=== PATIENT | female | born 1940 | race Caucasian/White ===

== ENCOUNTER 2017-02-16 21:24 | Emergency (ER) | payer MEDICARE, OTHER ==
--- NOTE | 2017-02-16 22:05 | ED Physician Documentation ---
PD HPI ABD PAIN - Stated complaint Stated Complaint: FEMALE - Chief complaint Chief Complaint: Abd Pain - History obtained from History obtained from: Patient - History of Present Illness Timing - onset: How many weeks ago (1-2 weeks of left low back pain radiating to both thighs anteriorly and toward medial knees. No feeling of weakness nor tingling of legs. No edema.) Timing - duration: Weeks (2) Timing - details: Gradual onset, Still present, Waxing and waning Quality: Cramping, Aching, Pain Location: LLQ, Other (left low back in SI area) Radiation: Lower back, Left flank. No: Chest Improved by: Laying still. No: Eating, BM, Position Worsened by: Moving, Palpation. No: Eating, Breathing, Position Associated symptoms: Nausea. No: Fever, Vomiting, Diarrhea, Dysuria, Hematuria , Near syncope / syncope Similar symptoms before: Has not had sx before Recently seen: Not recently seen Review of Systems Constitutional: denies: Fever, Chills Nose: denies: Rhinorrhea / runny nose, Congestion Throat: denies: Sore throat Cardiac: denies: Chest pain / pressure, Palpitations Respiratory: denies: Dyspnea, Cough GI: reports: Nausea. 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, Other HEENT: Tonsil/Adenoidectomy - Present Medications Home Medications: Ambulatory Orders Medication Instructions Recorded Confirmed Citalopram [CeleXA] 40 mg PO DAILY 11/30/13 02/16/17 HYDROcod/ACETAM 5/325 [Vicodin 1 - 2 ea PO Q6H PRN #15 tablet 11/30/13 02/16/17 5/325] Ondansetron Odt [Zofran] 4 mg TL Q6H PRN #10 tablet 11/30/13 02/16/17 Zolpidem [Ambien] 2.5 mg PO HS 11/30/13 02/16/17 Naproxen 375 mg PO BID #20 tablet 02/17/17 Tramadol HCl 50 mg PO Q6H PRN #20 tablet 02/17/17 - Allergies Allergies/Adverse Reactions: Allergies Allergy/AdvReac Type Severity Reaction Status Date / Time Sulfa (Sulfonamide Allergy blisters Verified 11/30/13 09:11 Antibiotics) morphine AdvReac Hallucinati Verified 06/23/14 07:01 ons - Social History Does the pt smoke?: No Smoking Status: Never smoker Does the pt drink ETOH?: No Does the pt have substance abuse?: No - Family History Family history: reports: Non contributory. denies: Aortic aneursym, Aortic dissection - Immunizations Immunizations are current?: Yes - POLST Patient has POLST: No POLST Status: Full Code PD ED PE NORMAL - Vitals Vital signs reviewed: Yes - General General: Alert and oriented X 3, No acute distress, Well developed/nourished - HEENT HEENT: Moist mucous membranes, Pharynx benign - Neck Neck: Supple, no meningeal sign, No adenopathy - Cardiac Cardiac: RRR, No murmur - Respiratory Respiratory: Clear bilaterally - Abdomen Abdomen: Normal bowel sounds, Soft, Non tender, Non distended, No organomegaly - Female Female : Deferred - Rectal Rectal: Deferred - Back Back: No CVA TTP, No spinal TTP (there is tenderness at right SI joint area. No redness, rash, sores. Legs without edema nor calf tenderness. Normal sensation in legs and 2+ DTRs at knees. There is some mild muscle stiffness of thighs. No redness nor tenderness. ) - Derm Derm: Normal color, Warm and dry, No rash - Extremities Extremities: Normal ROM s pain, No edema, No calf tenderness / cord, Other ( anterior thighs with some muscle tenderness bilaterally. ) - Neuro Neuro: Alert and oriented X 3, No motor deficit, No sensory deficit, Other ( normal knee reflexes. ) Results - Vitals Vitals: Vital Signs - 24 hr 02/16/17 02/17/17 21:31 01:27 Temperature 36.3 C L Heart Rate 67 77 Respiratory 16 16 Rate Blood Pressure 170/78 H 155/67 H O2 Saturation 98 97 Oxygen O2 Source Room air - Labs Labs: Laboratory Tests 02/16/17 02/16/17 02/16/17 22:14 22:41 22:41 WBC 6.6 RBC 4.62 Hgb 13.9 Hct 40.7 MCV 88.2 MCH 30.2 MCHC 34.2 RDW 13.3 Plt Count 193 MPV 9.0 Neut # 3.6 Lymph # 2.0 [place] # 0.5 Eos # 0.5 Baso # 0.1 Absolute Nucleated RBC 0.00 Nucleated RBCs 0.0 Sodium 138 Potassium 4.0 Chloride 106 Carbon Dioxide 25 Anion Gap 7.0 BUN 18 Creatinine 0.7 Estimated GFR (MDRD) 81 L Glucose 105 H Calcium 9.4 Total Bilirubin 0.7 AST 21 ALT 17 Alkaline Phosphatase 44 Total Protein 6.4 L Albumin 3.8 Globulin 2.6 Albumin/Globulin Ratio 1.5 Lipase 24 Urine Color YELLOW Urine Clarity CLEAR Urine pH 6.0 Ur Specific [place] 1.015 Urine Protein NEGATIVE Urine Glucose (UA) NEGATIVE Urine Ketones NEGATIVE Urine Occult Blood NEGATIVE Urine Nitrite NEGATIVE Urine Bilirubin NEGATIVE Urine Urobilinogen 0.2 (NORMAL) Ur Leukocyte Esterase NEGATIVE Ur Microscopic Review NOT INDICATED Urine Culture Comments NOT INDICATED - Rads (name of study) abd CT Radiology: Prelim report reviewed, EMP read contemporaneously (no stones, diverticula without obvious diverticulitis, no free fluid, vascular appears okay. Interesting small bubble of air in bladder. She did not have catheterization but says she did have to push hard to urinate, so perhaps some refluxing?).) PD MEDICAL DECISION MAKING - ED course Complexity details: reviewed results (CT showing no stones, no diverticulitis, vascular appears okay. Presumed msuculoskeletal with sdciatic radiation. She is not on statins regarding thigh muscle tenderness. ), re-evaluated patient, considered differential, d/w patient Departure - Departure Disposition: 01 Home, Self Care Clinical Impression: Abdominal pain Qualifiers: Abdominal location: left lower quadrant Qualified Code(s): R10.32 - Left lower quadrant pain Low back pain Qualifiers: Chronicity: acute Back pain laterality: left Sciatica presence: with sciatica Sciatica laterality: bilateral sciatica Qualified Code(s): M54.42 - Lumbago with sciatica, left side Condition: Stable Record reviewed to determine appropriate education?: Yes Instructions: ED Low Back Pain Injury, ED Sciatica Follow-Up: Elba Hawthorne DO [Primary Care Provider] - Prescriptions: Naproxen 375 mg PO BID #20 tablet Tramadol HCl 50 mg PO Q6H PRN #20 tablet PRN Reason: Pain Comments: The test do not show any bladder/kidney infection, kidney stones, diverticulitis , or other obvious infectious cause of the pain. Presume then, it is musculoskeletal pain with nerve irritation to the legs (sciatica). Use anti- inflammatory Naproxen twice daily for 7-10 days. Add Tylenol 500 mg 4 times daily and then Tramadol as well for pain as needed. Follow up with PMD in 2-3 days, call for appt. Return if worsening pain or other symptoms. Discharge Date/Time: 02/17/17 01:28
[2017-02-16 22:19] LABS: BILIRUBIN,URINE NEGATIVE (NEGATIVE)
[2017-02-16 22:23] LABS: UA CHARGE (STRIP ONLY) YES; UR CULTURE IF IND NOT INDICATED
[2017-02-16] MEDS ORDERED: KETOROLAC 60 MG/2 ML VIAL IVP STA (22:25)
[2017-02-16] MEDS ORDERED: fentaNYL 100 MCG/2 ML VIAL IVP STA (22:25)
[2017-02-16] MEDS ORDERED: ONDANSETRON 4 MG/2 ML VIAL IVP STA (22:26)
[2017-02-16 22:48] LABS: BASOPHILS # (AUTO) 0.1 10^3/uL (0.0-0.1); BASOPHILS % (AUTO) 0.8 %; EOSINOPHILS # (AUTO) 0.5 10^3/uL (0.0-0.7); EOSINOPHILS % (AUTO) 6.9 %; HCT - HEMATOCRIT 40.7 % (37.0-47.0); HGB - HEMOGLOBIN 13.9 g/dL (12.0-16.0); MEAN CORPUSCULAR HEMOGLOBIN 30.2 pg (27.0-31.0); MEAN CORPUSCULAR HGB CONC 34.2 g/dL (32.0-36.0); MEAN CORPUSCULAR VOLUME 88.2 fL (81.0-99.0); MONOCYTES # (AUTO) 0.5 10^3/uL (0.0-1.0); MONOCYTES % (AUTO) 7.1 %; NEUTROPHILS # (AUTO) 3.6 10^3/uL (1.5-6.6); NEUTROPHILS % (AUTO) 55.2 %; RED BLOOD COUNT 4.62 10^6/uL (4.20-5.40); RED CELL DISTRIBUTION WIDTH 13.3 % (12.0-15.0); UNCORRECTED WHITE BLOOD COUNT 6.6 x10^3/uL; WHITE BLOOD COUNT 6.6 x10^3/uL (4.8-10.8)
[2017-02-16 22:59] LABS: ALBUMIN/GLOBULIN RATIO 1.5 (1.0-2.2); BILIRUBIN,TOTAL 0.7 mg/dL (0.2-1.0); CALCIUM 9.4 mg/dL (8.5-10.3); CREATININE 0.7 mg/dL (0.4-1.0); TOTAL PROTEIN 6.4 g/dL (6.7-8.2)
[2017-02-17] MEDS ORDERED: IOPAMIDOL-300 100 ML VIAL IVP ONE (00:14)
--- NOTE | 2017-02-17 00:46 | CT Preliminary Report ---
Exam: CT Abdomen/Pelvis W/ IMPRESSION: 1. Diverticulosis without inflammation. Normal appendix. No obstruction. 2. No renal mass, stones or hydronephrosis. 3. Status post hysterectomy and cholecystectomy. 4. Tiny amounts of air within the bladder. Correlate with history of recent catheterization. [facility] SITE ID: [id number]
--- NOTE | 2017-02-17 00:49 | CT Report ---
EXAM: CT ABDOMEN AND PELVIS EXAM DATE: 02/17/2017 12:14 AM. CLINICAL HISTORY: Left lower abd pain/ pelvic pain. COMPARISONS: 03/06/2016. TECHNIQUE: Routine helical CT imaging was performed through the abdomen and pelvis. IV contrast: 100 cc Isovue-300. Enteric contrast: No. Reconstructions: Coronal and sagittal. In accordance with CT protocol optimization, one or more of the following dose reduction techniques w ere utilized for this exam: automated exposure control, adjustment of mA and/or KV based on patient s ize, or use of iterative reconstructive technique. FINDINGS: Lung Bases: Incidental small hiatal hernia noted. Lung bases are clear. No effusions. Liver: Normal. No masses. Gallbladder/Bile Ducts: Gallbladder is absent. No common bile duct dilation noted. Spleen: Normal. Pancreas: Normal. Adrenal Glands: Normal. Kidneys: Normal. No masses or hydronephrosis. Peritoneal Cavity/Bowel: Normal. No free fluid, free air or adenopathy. No masses or acute inflammato ry process. There are multiple diverticula seen which most severely affect the sigmoid colon. No wal l thickening or adjacent inflammation seen. No obstruction noted. Normal appendix. No focal right l ower quadrant inflammation. Pelvic Organs: Tiny amount of air is present in the nondependent portions of the bladder. Uterus is a bsent. No mass or adenopathy. Vasculature: Diffuse atheromatous plaques are present in the abdominal aorta and branch vessels. No a neurysm. Normal IVC. Bones: No significant abnormality. Other: None. IMPRESSION: 1. Diverticulosis without inflammation. Normal appendix. No obstruction. 2. No renal mass, stones or hydronephrosis. 3. Status post hysterectomy and cholecystectomy. 4. Tiny amounts of air within the bladder. Correlate with history of recent catheterization. [facility] Referring Provider Line: [phone] SITE ID: [id number]
[2017-02-17] MEDS ORDERED: DEXAMETHASONE 10 MG/ML VIAL IVP STA (01:14)
[2017-02-17] MEDS ORDERED: ACETAMINOPHEN 325 MG TABLET PO STA (01:14)
[2017-02-17] MEDS ORDERED: traMADol 50 MG TABLET PO STA (01:14)
[2017-02-17] MEDS ORDERED: traMADol 50 MG TABLET PO ONE (01:20)
[2017-02-17] MEDS ORDERED: CHERRY SYRUP 10 ML UDC PO ONE (01:20)
[2017-02-17] MEDS ORDERED: ACETAMINOPHEN 325 MG TABLET PO ONE (01:20)
[2017-02-17] MEDS ORDERED: DEXAMETHASONE 10 MG/ML VIAL ONE (01:20)
[2017-02-17 01:28] VITALS: BP 155/67
== END 2017-02-17 01:28 | disposition home or self-care (01) ==
LOC: ED 21:24
DX: R10.32 Left lower quadrant pain (principal); I25.10 Atherosclerotic heart disease of native coronary artery without angina pectoris
CPT/HCPCS: 36415; 74177; 80053; 81003; 83690; 85025; 96374; 99283; 99284; A9270; Q9967; 81001; 87086

== ENCOUNTER 2017-02-18 08:00 | Outpatient (CLI) | payer MEDICARE, OTHER ==
[2017-02-18 14:56] LABS: BASOPHILS % (AUTO) 0.5 %; EOSINOPHILS # (AUTO) 0.1 10^3/uL (0.0-0.7); EOSINOPHILS % (AUTO) 0.7 %; HCT - HEMATOCRIT 40.1 % (37.0-47.0); HGB - HEMOGLOBIN 13.6 g/dL (12.0-16.0); LYMPHOCYTES # (AUTO) 1.7 10^3/uL (1.5-3.5); LYMPHOCYTES % (AUTO) 17.6 %; MEAN CORPUSCULAR HEMOGLOBIN 30.1 pg (27.0-31.0); MEAN CORPUSCULAR VOLUME 88.6 fL (81.0-99.0); MEAN PLATELET VOLUME 9.5 fL (7.9-10.8); MONOCYTES # (AUTO) 0.5 10^3/uL (0.0-1.0); MONOCYTES % (AUTO) 4.7 %; NEUTROPHILS # (AUTO) 7.5 10^3/uL (1.5-6.6); NEUTROPHILS % (AUTO) 76.5 %; RED BLOOD COUNT 4.52 10^6/uL (4.20-5.40); RED CELL DISTRIBUTION WIDTH 13.7 % (12.0-15.0); UNCORRECTED WHITE BLOOD COUNT 9.8 x10^3/uL; WHITE BLOOD COUNT 9.8 x10^3/uL (4.8-10.8)
[2017-02-18 16:10] LABS: ALBUMIN/GLOBULIN RATIO 1.9 (1.0-2.2); BUN - BLOOD UREA NITROGEN 18 mg/dL (6-20); CALCIUM 9.5 mg/dL (8.5-10.3); CARBON DIOXIDE - CO2 27 mmol/L (21-32); CHLORIDE 105 mmol/L (101-111); CHOL/HDL RATIO 3.7 (<4.4); CHOLESTEROL 230 mg/dL; CREATININE 0.7 mg/dL (0.4-1.0); GFR - MDRD 81 (>89); GLUCOSE 91 mg/dL (70-100); HDL CHOLESTEROL 62 mg/dL; LDL/HDL RATIO 2.4 (<4.4); POTASSIUM 3.9 mmol/L (3.5-5.0); SODIUM 139 mmol/L (135-145); TOTAL PROTEIN 6.6 g/dL (6.7-8.2); TRIGLYCERIDES 102 mg/dL; VLDL CHOLESTEROL 20 mg/dL
== END 2017-02-18 08:01 | disposition home or self-care (01) ==
LOC: LAB.WCP 08:00
PROVIDERS: ATTEND Family Medicine
DX: R10.32 Left lower quadrant pain (principal)
CPT/HCPCS: 36415; 80053; 80061; 84443; 85025

== ENCOUNTER 2017-04-26 08:00 | Outpatient (CLI) | payer MEDICARE, OTHER | END 2017-04-26 08:01 | disposition home or self-care (01) | LOC: LAB.R 08:00 | PROVIDERS: ATTEND Family Medicine | DX: R39.89 Other symptoms and signs involving the genitourinary system (principal) | CPT/HCPCS: 87086 ==

== ENCOUNTER 2017-09-10 11:11 | Emergency (ER) | payer MEDICARE, OTHER ==
--- NOTE | 2017-09-10 12:07 | ED Physician Documentation ---
PD HPI FOCAL NEURO - Stated complaint Stated Complaint: STROKE LIKE SYMPTOMS - Chief complaint Chief Complaint: Neuro - History obtained from History obtained from: Patient - History of Present Illness Timing - onset: How many days ago (3) Timing - duration: Days (3) Timing - details: Intermittant (has had symptoms for few minutes at a time, initially 3 days ago, again yesterday and last night, with fixed bright spot right eye vision (not flashing) and right corner of mouth and side of tongue numbness. No symptoms currently. No facial droop/weakness. Noted some numbness right middle fingers at a different time just briefly.) Weakness: No: Face, Arm, Hand, Leg Numbness: Face, Hand Associated symptoms: No: Headache, Nausea / vomiting, Chest pain, Neck pain, Back pain Contributing factors: negative: Anticoagulated, Vascular dz, Atrial fibrillation Baseline status: positive: A&OX3, ambulatory, indep Similar symptoms before: Has not had sx before Recently seen: Not recently seen Review of Systems Constitutional: denies: Fever, Chills, Myalgias Eyes: reports: Decreased vision (white spots in vision, not flashing, lasting several minutes at a time then gone. Right eye.). denies: Loss of vision Ears: denies: Loss of hearing, Ear pain Nose: denies: Rhinorrhea / runny nose, Congestion Throat: denies: Dental pain / toothache, Oral lesions / sores, Sore throat Cardiac: denies: Chest pain / pressure, Palpitations Respiratory: denies: Dyspnea GI: denies: Nausea, Vomiting, Diarrhea : denies: Dysuria, Frequency Skin: denies: Rash, Lesions Musculoskeletal: denies: Neck pain, Back pain Neurologic: reports: Numbness (right side of tongue and around corner of mouth. Not whole face. At times some to right middle fingers.). 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, Other HEENT: Tonsil/Adenoidectomy - Present Medications Home Medications: Ambulatory Orders Medication Instructions Recorded Confirmed Citalopram [CeleXA] 40 mg PO DAILY 11/30/13 02/16/17 Zolpidem [Ambien] 2.5 mg PO HS 11/30/13 02/16/17 - Allergies Allergies/Adverse Reactions: Allergies Allergy/AdvReac Type Severity Reaction Status Date / Time Sulfa (Sulfonamide Allergy blisters Verified 09/10/17 11:18 Antibiotics) morphine AdvReac Hallucinati Verified 09/10/17 11:18 ons - Living Situation Living Situation: reports: Alone Living Arrangement: reports: At home - Social History Does the pt smoke?: No Smoking Status: Never smoker Does the pt drink ETOH?: Yes Does the pt have substance abuse?: No - Family History Family history: reports: Non contributory. denies: Venous thromboembolism - Immunizations Immunizations are current?: Yes - POLST Patient has POLST: No POLST Status: Full Code PD ED PE NORMAL - Vitals Vital signs reviewed: Yes - General General: No acute distress, Well developed/nourished - HEENT HEENT: Atraumatic, Pharynx benign - Neck Neck: Supple, no meningeal sign, No adenopathy - Cardiac Cardiac: RRR, No murmur - Respiratory Respiratory: Clear bilaterally - Abdomen Abdomen: Soft, Non tender - Derm Derm: Normal color, Warm and dry, No rash - Extremities Extremities: No deformity, No tenderness to palpate, Normal ROM s pain, No edema , No calf tenderness / cord - Neuro Neuro: Alert and oriented X 3, car manager 2-12 intact, No motor deficit, No sensory deficit, Normal speech, Other Eye Opening: Spontaneous Motor: Obeys Commands Verbal: Oriented GCS Score: 15 - Psych Psych: Normal mood NIHSS - Level of Consciousness Level of consciousness: (0) Alert, Keenly responsive LOC Questions: (0) Answers both Q's correct LOC Commands: (0) Performs both correctly - Gaze Best Gaze: (0) Normal - Visual Visual: (0) No loss - Facial Palsy Facial Palsy: (0) Normal, symmetrical movement - Motor Arms (both separate) Motor Arm (right): (0) No drift Motor Arm (left): (0) No drift - Motor Legs (both separate) Motor Leg (right): (0) No drift Motor Leg (left): (0) No drift - Limb Ataxia Limb Ataxia: (0) Absent - Sensory Sensory: (0) Normal - Best Language Best Language: (0) No aphasia - Dysarthria Dysarthria: (0) Normal - Extinction and Inattention (formally neg Extinction and inattention: (0) No abnormality - Total Score/Results Total Score/Result: 0 Results - Vitals Vitals: Oxygen O2 Source Room air - Labs Labs: Laboratory Tests 09/10/17 09/10/17 09/10/17 11:50 11:50 11:50 WBC 5.3 RBC 4.61 Hgb 13.8 Hct 40.6 MCV 88.0 MCH 29.8 MCHC 33.9 RDW 13.5 Plt Count 176 MPV 9.0 Neut # 3.7 Lymph # 1.0 L [place] # 0.4 Eos # 0.1 Baso # 0.0 Absolute Nucleated RBC 0.00 Nucleated RBC % 0.1 ESR 4 Sodium 137 Potassium 4.1 Chloride 104 Carbon Dioxide 25 Anion Gap 8.0 BUN 14 Creatinine 0.7 Estimated GFR (MDRD) 81 L Glucose 82 Calcium 9.2 Magnesium 2.1 Total Bilirubin 0.7 AST 23 ALT 16 Alkaline Phosphatase 39 L Total Protein 6.4 L Albumin 4.0 Globulin 2.4 Albumin/Globulin Ratio 1.7 Lipase 17 L - Rads (name of study) brain MRI/MRA Radiology: Prelim report reviewed (no focal lesions nor infarcts.) PD MEDICAL DECISION MAKING - ED course Complexity details: reviewed results, considered differential (her symptoms would be worrisome for posterior circulation with facial nerve root and visual symptoms. Need MRI. 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 Drink lots of fluids. Take a 81 mg aspirin daily. Follow-up with your primary care in the next few days, call for an appointment. At this point would presume the symptoms are related to intermittent flow problems (TIA). No other obvious cause on your current testing. The meningioma you had is the same size and so I do not think that is causing it. Discharge Date/Time: 09/10/17 15:03
[2017-09-10 12:30] LABS: BASOPHILS % (AUTO) 0.8 %; EOSINOPHILS # (AUTO) 0.1 10^3/uL (0.0-0.7); EOSINOPHILS % (AUTO) 2.8 %; HGB - HEMOGLOBIN 13.8 g/dL (12.0-16.0); LYMPHOCYTES % (AUTO) 19.7 %; MEAN CORPUSCULAR HEMOGLOBIN 29.8 pg (27.0-31.0); MEAN CORPUSCULAR HGB CONC 33.9 g/dL (32.0-36.0); MONOCYTES # (AUTO) 0.4 10^3/uL (0.0-1.0); MONOCYTES % (AUTO) 6.8 %; NEUTROPHILS # (AUTO) 3.7 10^3/uL (1.5-6.6); NEUTROPHILS % (AUTO) 69.9 %; PLT - PLATELET COUNT 176 10^3/uL (130-450); RED BLOOD COUNT 4.61 10^6/uL (4.20-5.40); RED CELL DISTRIBUTION WIDTH 13.5 % (12.0-15.0); WHITE BLOOD COUNT 5.3 x10^3/uL (4.8-10.8)
[2017-09-10 12:38] LABS: ALBUMIN/GLOBULIN RATIO 1.7 (1.0-2.2); BILIRUBIN,TOTAL 0.7 mg/dL (0.2-1.0); CALCIUM 9.2 mg/dL (8.5-10.3); CREATININE 0.7 mg/dL (0.4-1.0); MAGNESIUM 2.1 mg/dL (1.7-2.8); TOTAL PROTEIN 6.4 g/dL (6.7-8.2)
[2017-09-10] MEDS ORDERED: GADOBUTROL 7.5 MMOL/7.5 ML VIAL ONE (13:34)
[2017-09-10] MEDS ORDERED: GADOBUTROL 7.5 MMOL/7.5 ML VIAL IVP ONE (13:50)
[2017-09-10 14:10] VITALS: BP 178/69
--- NOTE | 2017-09-10 14:32 | MRI Report ---
EXAM: MRI BRAIN WITHOUT AND WITH CONTRAST MR ANGIOGRAM BRAIN EXAM DATE: 09/10/2017 01:53 PM. CLINICAL HISTORY: Intermittent right tongue and face numbness. Visual change. History of known right- sided meningioma. COMPARISON: Prior MRI brain 01/14/2015. TECHNIQUE: MRI brain: Multiplanar, multisequence T1-weighted and fluid-sensitive MR sequences of the brain were performed. Sequences optimized for routine evaluation. Other: None. IV Contrast: 7 cc Gadavist. MR angiogram brain: MRA brain performed, multiple maximum intensity projection images are generated. Findings: Relevant images are indicated (image number, series number). MRI brain: Compared with MRI brain 01/14/2015: No interval acute or subacute ischemic change of the brain. Small stable right basal ganglia, right p utamen cavernoma, unchanged with small ring hemosiderin, maximum dimension 0.7 cm. Gradient echo imag ing negative. No interval development of hemorrhage, mass or midline shift. Ventricles are not dilated. Minimal gen eralized cortical atrophy of the brain. Postcontrast imaging again demonstrates 1 cm right convexity extra-axial enhancing mass consistent with meningioma, no mass effect (59, 1003). Basal cisterns, bilateral IACs, bilateral Meckel's caves are clear. Orbital contents negative. Mild-t o-moderate left frontal, anterior left ethmoidal sinus mucosal thickening. Normal expected vascular flow voids of the major arteries and veins. Limited evaluation suprahyoid neck unremarkable. Unchanged minimal scattered subcortical white matter disease. Pituitary, mid brain, craniocervical junction, limited evaluation upper cervical cord negative. Chron ic degenerative change C1-C2 articulation without canal stenosis. Extraocular muscles, optic nerves, orbital apex, optic chiasm appears negative. MRA brain: Left ICA: Patent. Patent MCA with at least 20-30% short segment narrowing mid left M1 segment (121, 4 01), otherwise patent MCA distribution, SILVER distribution. Right ICA: Patent including MCA, SILVER distribution. Posterior circulation: Patent distal bilateral vertebral arteries, basilar artery, patent bilateral P CA distribution. Impressions: Compared with MRI brain 01/14/2015: MRI brain: 1. No acute or subacute ischemic change. 2. Stable small right basal ganglia 0.7 cm cavernoma. 3. Stable 1 cm right convexity meningioma, no mass effect. 4. Stable minimal scattered subcortical white matter disease of indeterminate significance. Could be related to any history of headaches. 5. Remaining brain, orbits are unremarkable. 6. Mild to moderate paranasal sinus disease as described. MR angiogram brain: 1. Patent major arteries of the brain, with normal anatomical variability as described. No aneurysm, dissection, stenosis, AVM. [facility] Referring Provider Line: [phone] SITE ID: [id number]
[2017-09-10] MEDS ORDERED: ASPIRIN CHEW 81 MG TABLET PO STA (14:58)
== END 2017-09-10 15:03 | disposition home or self-care (01) ==
LOC: ED 11:11
DX: G45.0 Vertebro-basilar artery syndrome (principal); I25.10 Atherosclerotic heart disease of native coronary artery without angina pectoris; R94.31 Abnormal electrocardiogram [ECG] [EKG]
CPT/HCPCS: 36415; 70544; 70553; 80053; 83690; 83735; 85025; 85651; 93005; 99283; A9270; A9585

== ENCOUNTER 2018-09-10 09:42 | Outpatient (CLI) | payer MEDICARE, OTHER ==
--- NOTE | 2018-09-11 09:08 | Mammography Report ---
Reason: SCREENING MAMMO Procedure Date: 09/10/2018 Accession Number: [id number] / [id number] Procedure: [facility] - Screening Mammo w/Michael CPT Code: FULL RESULT: EXAM: Screening Mammo w/Michael DATE: 09/10/2018 10:15 AM CLINICAL HISTORY: Screening encounter. Personal history of left breast cancer status post lumpectomy and radiation. TECHNIQUE: Bilateral CC and MLO views were obtained. A left laterally exaggerated CC view was obtained. COMPARISON: 12/14/2015 through 12/13/2010. FINDINGS: The breasts demonstrate diffuse fatty replacement bilaterally. Postsurgical and posttreatment changes in the left breast are stable. No suspicious masses, clustered microcalcifications, or regions of architectural distortion are identified. IMPRESSION: Benign findings RECOMMENDATION: Routine annual screening unless otherwise clinically indicated. BIRADS CATEGORY 2: Benign findings STANDARD QUALIFYING STATEMENTS: 1. This examination was not reviewed with the aid of Computer-Aided Detection (CAD). 2. A negative or benign imaging report should not preclude biopsy if clinically suspicious findings are present. 3. Dense breasts may obscure an underlying neoplasm. 4. This examination was reviewed with the aid of 3D breast imaging (tomosynthesis).
== END 2018-09-10 09:43 | disposition home or self-care (01) ==
LOC: DI 09:42
DX: Z12.31 Encounter for screening mammogram for malignant neoplasm of breast (principal); Z85.3 Personal history of malignant neoplasm of breast
CPT/HCPCS: 77063; 77067

== ENCOUNTER 2019-01-24 15:55 | Outpatient (CLI) | payer MEDICARE, OTHER ==
--- NOTE | 2019-01-24 18:23 | Ultrasound Report ---
Reason: LEG PAIN,LEFT Procedure Date: 01/24/2019 Accession Number: [id number] / [id number] Procedure: US - Duplex Ext Veins Bilateral CPT Code: FULL RESULT: EXAM: BILATERAL LOWER EXTREMITY VENOUS ULTRASOUND EXAM DATE: 01/24/2019 04:27 PM. CLINICAL HISTORY: Left leg pain. Redness. Postop. COMPARISON: None. TECHNIQUE: Real-time sonographic vascular imaging was performed by the preparation plant repairer through the lower extremities utilizing both color-flow and Doppler spectral analysis. Multiple access service representative static images were saved for review. FINDINGS: Right: Common Femoral Vein (CFV): Normal. CFV-GSV Junction: Normal. Profunda Femoral Vein (PFV): Normal. Femoral Vein (FV) Prox: Normal. Femoral Vein (FV) Mid: Normal. Femoral Vein (FV) Dist: Normal. Popliteal Vein: Normal. Posterior Tibial Veins: Normal. Peroneal Veins: Normal. Left: Common Femoral Vein (CFV): Normal. CFV-GSV Junction: Normal. Profunda Femoral Vein (PFV): Normal. Femoral Vein (FV) Prox: Normal. Femoral Vein (FV) Mid: Normal. Femoral Vein (FV) Dist: Normal. Popliteal Vein: Normal. Posterior Tibial Veins: Normal. Peroneal Veins: Normal. Other: None. IMPRESSION: No evidence for deep venous thrombosis bilaterally. [facility]
== END 2019-01-24 15:56 | disposition home or self-care (01) ==
LOC: DI 15:55
PROVIDERS: ATTEND Family Medicine
DX: M79.605 Pain in left leg (principal)
CPT/HCPCS: 93970

== ENCOUNTER 2019-04-03 14:19 | Outpatient (CLI) | payer MEDICARE, OTHER ==
--- NOTE | 2019-04-06 14:08 | Ultrasound Report ---
Reason: CLAUDICATION Procedure Date: 04/03/2019 Accession Number: [id number] / [id number] Procedure: US - Duplex Lwr Ext Arterial Bilat CPT Code: FULL RESULT: EXAM: Bilateral Lower Extremity Arterial Doppler Ultrasound EXAM DATE: 04/03/2019 05:32 PM. CLINICAL HISTORY: CLAUDICATION. COMPARISON: None. TECHNIQUE: Real-time sonographic vascular imaging was performed by the line closer, utilizing color-flow, Doppler flow, and spectral analysis. Multiple insurance healthcare representative static images were saved for review. FINDINGS: Bilateral lower extremity arterial investigation is performed with preserved patency by color Doppler and no single high-grade focal lesion on goodwin scale Doppler. Brisk systolic arterial upstrokes are preserved throughout the right lower extremity system. In the left lower extremity system, the anterior tibial artery demonstrates progressively decreasing upstroke and blunting of waveforms with essentially tardus parvus appearance of the waveform in the distal anterior tibial artery. A relatively brisk arterial upstroke is preserved to the level of the dorsalis pedis artery despite the diminished anterior tibial artery supply. Posterior tibial artery and peroneal artery on the left demonstrate preservation of brisk systolic upstroke throughout. The following peak systolic velocities in centimeters per second and waveforms are recorded: Right Leg: CARDIAC CARE UNIT NURSE: PSV 165 cm/sec. Biphasic waveform. PSFA: PSV 101 cm/sec. Biphasic waveform. MSFA: PSV 65 cm/sec. Biphasic waveform. DSFA: PSV 62 cm/sec. Biphasic waveform. PFA: PSV 145 cm/sec. Monophasic waveform. POP: PSV 54 cm/sec. Biphasic waveform. JELENA: PSV 42 cm/sec. Biphasic waveform. ASSET MANAGEMENT ANALYST: PSV 43 cm/sec. Biphasic waveform. PER: PSV 35 cm/sec. Biphasic waveform. DPA: PSV 27 cm/sec. Monophasic waveform. Left Leg: CARDIAC CARE UNIT NURSE: PSV 149 cm/sec. Monophasic waveform. PSFA: PSV 82 cm/sec. Monophasic waveform. MSFA: PSV 79 cm/sec. Monophasic waveform. DSFA: PSV 81 cm/sec. Monophasic waveform. PFA: PSV 152 cm/sec. Biphasic waveform. POP: PSV 23 cm/sec. Monophasic waveform. JELENA: PSV 8 cm/sec. Monophasic waveform. ASSET MANAGEMENT ANALYST: PSV 20 cm/sec. Monophasic waveform. PER: PSV 27 cm/sec. Monophasic waveform. DPA: PSV 25 cm/sec. Monophasic waveform. IMPRESSION: Suspect small vessel below the knee disease in the left anterior tibial artery distribution. Remaining vessels demonstrate patency and excellent arterial waveforms throughout. [facility]
== END 2019-04-03 14:20 | disposition home or self-care (01) ==
LOC: DI 14:19
PROVIDERS: ATTEND Family Medicine
DX: I73.9 Peripheral vascular disease, unspecified (principal)
CPT/HCPCS: 93925

== ENCOUNTER 2019-07-01 09:56 | Outpatient (CLI) | payer MEDICARE, OTHER ==
[2019-07-01 13:07] LABS: BASOPHILS # (AUTO) 0.1 10^3/uL (0.0-0.1); BASOPHILS % (AUTO) 0.6 %; EOSINOPHILS # (AUTO) 0.2 10^3/uL (0.0-0.7); EOSINOPHILS % (AUTO) 2.3 %; HGB - HEMOGLOBIN 14.7 g/dL (12.0-16.0); LYMPHOCYTES # (AUTO) 1.6 10^3/uL (1.5-3.5); LYMPHOCYTES % (AUTO) 20.1 %; MEAN CORPUSCULAR HEMOGLOBIN 29.9 pg (27.0-31.0); MEAN CORPUSCULAR HGB CONC 33.2 g/dL (32.0-36.0); MEAN PLATELET VOLUME 11.5 fL (7.9-10.8); MONOCYTES # (AUTO) 0.6 10^3/uL (0.0-1.0); MONOCYTES % (AUTO) 6.8 %; NEUTROPHILS # (AUTO) 5.7 10^3/uL (1.5-6.6); NEUTROPHILS % (AUTO) 69.8 %; PLT - PLATELET COUNT 261 10^3/uL (130-450); RED BLOOD COUNT 4.92 10^6/uL (4.20-5.40); RED CELL DISTRIBUTION WIDTH 12.6 % (12.0-15.0); WHITE BLOOD COUNT 8.1 x10^3/uL (4.8-10.8)
[2019-07-01 16:03] LABS: ALBUMIN 3.7 g/dL (3.2-5.5); ALBUMIN/GLOBULIN RATIO 1.4 (1.0-2.2); ALKALINE PHOSPHATASE 49 IU/L (42-121); ALT ALANINE AMINOTRANSFERASE 19 IU/L (10-60); AST ASPARTATE AMINOTRANSFERASE 21 IU/L (10-42); BILIRUBIN,TOTAL 0.8 mg/dL (0.2-1.0); BUN - BLOOD UREA NITROGEN 14 mg/dL (6-20); CALCIUM 9.3 mg/dL (8.5-10.3); CARBON DIOXIDE - CO2 27 mmol/L (21-32); CHLORIDE 104 mmol/L (101-111); CHOL/HDL RATIO 2.6 (<4.4); CHOLESTEROL 141 mg/dL; CREATININE 0.7 mg/dL (0.4-1.0); GFR - MDRD 81 (>89); GLUCOSE 103 mg/dL (70-100); HDL CHOLESTEROL 55 mg/dL; LDL CHOLESTEROL,CALCULATED 70 mg/dL; LDL/HDL RATIO 1.3 (<4.4); SODIUM 138 mmol/L (135-145); TOTAL PROTEIN 6.4 g/dL (6.7-8.2); VLDL CHOLESTEROL 16 mg/dL
== END 2019-07-01 23:59 | disposition home or self-care (01) ==
LOC: LAB.WCP 09:56
PROVIDERS: ATTEND Family Medicine
DX: E03.9 Hypothyroidism, unspecified (principal); G45.9 Transient cerebral ischemic attack, unspecified; K58.9 Irritable bowel syndrome, unspecified; E78.5 Hyperlipidemia, unspecified
CPT/HCPCS: 36415; 80053; 80061; 83721; 84443; 85025

== ENCOUNTER 2020-05-19 01:55 | Emergency (ER) | payer MEDICARE, OTHER ==
--- NOTE | 2020-05-19 01:57 | ED Physician Documentation ---
History of Present Illness - Stated complaint Stated Complaint: PALPITATIONS - History obtained from History obtained from: Patient - Additonal information Additional information: Patient is a 79-year-old female presents with a chief complaint of palpitations earlier today it has since resolved. She denies any complaints currently specifically denies chest pain or shortness of breath or lower extremity swelling. She is on Plavix. Denies any other complaints. Review of Systems Constitutional: reports: Reviewed and negative Eyes: reports: Reviewed and negative Ears: reports: Reviewed and negative Nose: reports: Reviewed and negative Throat: reports: Reviewed and negative Cardiac: reports: Palpitations Respiratory: reports: Reviewed and negative GI: reports: Reviewed and negative : reports: Reviewed and negative Skin: reports: Reviewed and negative Musculoskeletal: reports: Reviewed and negative Neurologic: reports: Reviewed and negative Psychiatric: reports: Reviewed and negative Endocrine: reports: Reviewed and negative Immunocompromised: reports: Reviewed and negative PD PAST MEDICAL HISTORY - Past Medical History Cardiovascular: Coronary artery disease Respiratory: None Endocrine/Autoimmune: None GI: GERD, Other Psych: Depression - Past Surgical History Past Surgical History: Yes General: 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: Hysterectomy, Other HEENT: Tonsil/Adenoidectomy - Present Medications Home Medications: Ambulatory Orders Medication Instructions Recorded Confirmed Citalopram [CeleXA] 40 mg PO DAILY 11/30/13 02/16/17 Zolpidem [Ambien] 2.5 mg PO HS 11/30/13 02/16/17 - Allergies Allergies/Adverse Reactions: Allergies Allergy/AdvReac Type Severity Reaction Status Date / Time Sulfa (Sulfonamide Allergy blisters Verified 05/19/20 01:59 Antibiotics) morphine AdvReac Hallucinati Verified 05/19/20 01:59 ons - Social History Does the pt smoke?: No Smoking Status: Never smoker Does the pt drink ETOH?: Yes Does the pt have substance abuse?: No - Immunizations Immunizations are current?: Yes - POLST Patient has POLST: No POLST Status: Full Code PD ED PE NORMAL - Vitals Vital signs reviewed: Yes - General General: Alert and oriented X 3, No acute distress, Well developed/nourished - HEENT HEENT: Atraumatic, PERRL, Moist mucous membranes, Pharynx benign, Dentition benign - Neck Neck: Supple, no meningeal sign, No bony TTP, No adenopathy, Thyroid normal, No JVD, No bruit - Cardiac Cardiac: RRR, No murmur, No gallop, No rub, Strong equal pulses - Respiratory Respiratory: No respiratory distress, Clear bilaterally - Abdomen Abdomen: Normal bowel sounds, Soft, Non tender, Non distended, No organomegaly, Other (Midline abdominal pulsatile mass) - Female Female : Deferred - Rectal Rectal: Deferred - Back Back: No CVA TTP, No spinal TTP - Derm Derm: Normal color, Warm and dry, No rash - Extremities Extremities: No deformity, No tenderness to palpate, Normal ROM s pain, No edema, No calf tenderness / cord - Neuro Neuro: Alert and oriented X 3, serology teacher 2-12 intact, No motor deficit, No sensory deficit, Normal speech - Psych Psych: Normal mood, Normal affect Results - Vitals Vitals: Vital Signs - 24 hr 05/19/20 05/19/20 05/19/20 01:58 02:18 02:38 Temperature 36.4 C L Heart Rate 60 58 L 62 Respiratory 16 17 16 Rate Blood Pressure 132/114 H 154/78 H 127/82 H O2 Saturation 99 97 99 Oxygen O2 Source Room air - EKG (time done) 02:06 Rate: Other (No STEMI) - Labs Labs: Laboratory Tests 05/19/20 05/19/20 05/19/20 02:30 02:30 02:30 WBC 6.6 RBC 4.66 Hgb 14.2 Hct 41.8 MCV 89.7 MCH 30.5 MCHC 34.0 RDW 13.2 Plt Count 186 MPV 10.8 Neut # (Auto) 4.2 Lymph # (Auto) 1.6 Burnet # (Auto) 0.6 Eos # (Auto) 0.2 Baso # (Auto) 0.1 Absolute Nucleated RBC 0.00 Nucleated RBC % 0.0 PT 10.9 INR 1.0 APTT 25.1 Sodium 137 Potassium 4.0 Chloride 107 Carbon Dioxide 23 Anion Gap 7.0 BUN 18 Creatinine 0.6 Estimated GFR (MDRD) 96 Glucose 120 H Calcium 9.1 Total Bilirubin 0.9 AST 33 ALT 28 Alkaline Phosphatase 65 Troponin I High Sens Total Protein 6.3 L Albumin 3.5 Globulin 2.8 Albumin/Globulin Ratio 1.3 Lipase 29 TSH 05/19/20 05/19/20 02:30 02:30 WBC RBC Hgb Hct MCV MCH MCHC RDW Plt Count MPV Neut # (Auto) Lymph # (Auto) [place]et # (Auto) Eos # (Auto) Baso # (Auto) Absolute Nucleated RBC Nucleated RBC % PT INR APTT Sodium Potassium Chloride Carbon Dioxide Anion Gap BUN Creatinine Estimated GFR (MDRD) Glucose Calcium Total Bilirubin AST ALT Alkaline Phosphatase Troponin I High Sens 8.3 Total Protein Albumin Globulin Albumin/Globulin Ratio Lipase TSH 4.17 - Rads (name of study) 03:20 Radiology: Prelim report reviewed, EMP read contemporaneously, See rad report PD MEDICAL DECISION MAKING - ED course Complexity details: reviewed old records, reviewed results, re-evaluated patient, d/w patient ED course: 79-year-old female presents with palpitations off and on for the last several weeks. Denies any symptoms currently. EKG shows no STEMI her troponin is negative negative chest x-ray as well. Patient would like to be discharged home I feel this is reasonable given that she does not have chest pain and she is a symptomatic currently and she will follow-up with her primary care provider today. Departure - Departure Disposition: 01 Home, Self Care Clinical Impression: Palpitations Condition: Stable Instructions: ED Palpitations Follow-Up: Elba Hawthorne DO [Primary Care Provider] - 05/19/20 Comments: Please follow-up with your primary care provider today.
[2020-05-19] MEDS ORDERED: SODIUM CHLORIDE 0.9% 1,000 ML IV STA (02:17)
[2020-05-19 02:40] LABS: BASOPHILS # (AUTO) 0.1 10^3/uL (0.0-0.1); BASOPHILS % (AUTO) 0.9 %; EOSINOPHILS # (AUTO) 0.2 10^3/uL (0.0-0.7); EOSINOPHILS % (AUTO) 2.9 %; HGB - HEMOGLOBIN 14.2 g/dL (12.0-16.0); LYMPHOCYTES # (AUTO) 1.6 10^3/uL (1.5-3.5); MEAN CORPUSCULAR HEMOGLOBIN 30.5 pg (27.0-31.0); MEAN CORPUSCULAR VOLUME 89.7 fL (81.0-99.0); MEAN PLATELET VOLUME 10.8 fL (7.9-10.8); MONOCYTES # (AUTO) 0.6 10^3/uL (0.0-1.0); MONOCYTES % (AUTO) 8.3 %; NEUTROPHILS # (AUTO) 4.2 10^3/uL (1.5-6.6); NEUTROPHILS % (AUTO) 63.7 %; PLT - PLATELET COUNT 186 10^3/uL (130-450); RED BLOOD COUNT 4.66 10^6/uL (4.20-5.40); RED CELL DISTRIBUTION WIDTH 13.2 % (12.0-15.0); WHITE BLOOD COUNT 6.6 x10^3/uL (4.8-10.8)
[2020-05-19 02:47] LABS: PT - PROTHROMBIN TIME 10.9 secs (9.9-12.6)
[2020-05-19 02:54] LABS: PARTIAL THROMBOPLASTIN TIME 25.1 secs (24.9-33.3)
[2020-05-19 02:55] LABS: ALBUMIN 3.5 g/dL (3.2-5.5); ALBUMIN/GLOBULIN RATIO 1.3 (1.0-2.2); BILIRUBIN,TOTAL 0.9 mg/dL (0.2-1.0); CALCIUM 9.1 mg/dL (8.5-10.3); CREATININE 0.6 mg/dL (0.4-1.0); TOTAL PROTEIN 6.3 g/dL (6.7-8.2)
[2020-05-19 03:19] VITALS: BP 149/72
--- NOTE | 2020-05-19 09:10 | XRAY Report ---
PROCEDURE: Chest 1 View X-Ray INDICATIONS: sob TECHNIQUE: One view of the chest was acquired. COMPARISON: 11/12/2016 FINDINGS: Surgical changes and devices: Surgical clips in the left breast.. Lungs and pleura: No pleural effusions or pneumothorax. Lungs are clear. Mediastinum: Mediastinal contours appear normal. Heart size is normal. Bones and chest wall: No suspicious bony lesions. Overlying soft tissues appear unremarkable. IMPRESSION: No acute cardiopulmonary disease process. Reviewed by: Tiana Cruz MD, PhD on 05/19/2020 9:09 AM PDT Approved by: Tiana Cruz MD, PhD on 05/19/2020 9:09 AM PDT Station ID: [id number]
== END 2020-05-19 03:34 | disposition home or self-care (01) ==
LOC: ED 01:55
DX: R00.2 Palpitations (principal); I25.10 Atherosclerotic heart disease of native coronary artery without angina pectoris; Z79.02 Long term (current) use of antithrombotics/antiplatelets
CPT/HCPCS: 36415; 71045; 80053; 83690; 84443; 84484; 85025; 85610; 85730; 93005; 99283; 99284

== ENCOUNTER 2020-06-13 08:00 | Outpatient (CLI) | payer MEDICARE, OTHER | END 2020-06-13 23:59 | disposition home or self-care (01) | LOC: LAB.WCP 08:00 | PROVIDERS: ATTEND Family Medicine | DX: R30.0 Dysuria (principal) | CPT/HCPCS: 81002 ==

== ENCOUNTER 2020-07-20 07:00 | Outpatient (CLI) | payer MEDICARE, OTHER ==
[2020-07-20 17:52] LABS: BASOPHILS # (AUTO) 0.1 10^3/uL (0.0-0.1); EOSINOPHILS # (AUTO) 0.2 10^3/uL (0.0-0.7); EOSINOPHILS % (AUTO) 2.6 %; HGB - HEMOGLOBIN 14.8 g/dL (12.0-16.0); LYMPHOCYTES % (AUTO) 18.1 %; MEAN CORPUSCULAR HEMOGLOBIN 30.2 pg (27.0-31.0); MEAN CORPUSCULAR HGB CONC 32.5 g/dL (32.0-36.0); MEAN CORPUSCULAR VOLUME 93.1 fL (81.0-99.0); MEAN PLATELET VOLUME 11.1 fL (7.9-10.8); MONOCYTES # (AUTO) 0.4 10^3/uL (0.0-1.0); MONOCYTES % (AUTO) 6.1 %; NEUTROPHILS # (AUTO) 4.1 10^3/uL (1.5-6.6); NEUTROPHILS % (AUTO) 71.9 %; PLT - PLATELET COUNT 199 10^3/uL (130-450); RED CELL DISTRIBUTION WIDTH 13.2 % (12.0-15.0); WHITE BLOOD COUNT 5.7 x10^3/uL (4.8-10.8)
[2020-07-20 18:08] LABS: ALBUMIN 3.7 g/dL (3.2-5.5); ALBUMIN/GLOBULIN RATIO 1.4 (1.0-2.2); ALKALINE PHOSPHATASE 55 IU/L (42-121); ALT ALANINE AMINOTRANSFERASE 23 IU/L (10-60); AST ASPARTATE AMINOTRANSFERASE 26 IU/L (10-42); BILIRUBIN,TOTAL 1.1 mg/dL (0.2-1.0); BUN - BLOOD UREA NITROGEN 14 mg/dL (6-20); CALCIUM 9.1 mg/dL (8.5-10.3); CARBON DIOXIDE - CO2 26 mmol/L (21-32); CHLORIDE 107 mmol/L (101-111); CHOL/HDL RATIO 4.3 (<4.4); CHOLESTEROL 268 mg/dL; CREATININE 0.7 mg/dL (0.4-1.0); GLUCOSE 85 mg/dL (70-100); HDL CHOLESTEROL 62 mg/dL; LDL CHOLESTEROL,CALCULATED 189 mg/dL; SODIUM 138 mmol/L (135-145); TOTAL PROTEIN 6.3 g/dL (6.7-8.2); VLDL CHOLESTEROL 17 mg/dL
== END 2020-07-20 23:59 | disposition home or self-care (01) ==
LOC: LAB.WCP 07:00
PROVIDERS: ATTEND Family Medicine
DX: I10 Essential (primary) hypertension (principal)
CPT/HCPCS: 36415; 80053; 80061; 83721; 84443; 85025

== ENCOUNTER 2020-07-27 20:19 | Outpatient (CLI) | payer MEDICARE, OTHER | END 2020-07-27 20:20 | disposition home or self-care (01) | LOC: COV 20:19 | PROVIDERS: ATTEND Family Medicine | DX: R50.9 Fever, unspecified (principal); M79.10 Myalgia, unspecified site; R09.81 Nasal congestion; R11.2 Nausea with vomiting, unspecified; Z20.828 Contact with and (suspected) exposure to other viral communicable diseases ==

== ENCOUNTER 2020-07-28 03:52 | Emergency (ER) | payer MEDICARE, OTHER ==
--- NOTE | 2020-07-28 04:31 | ED Physician Documentation ---
History of Present Illness - Stated complaint Stated Complaint: VISION CHANGES - Chief complaint Chief Complaint: Neuro - History obtained from History obtained from: Patient - Additonal information Additional information: 80-year-old woman with past medical history of asymptomatic bradycardia not on blood pressure medicine, multiple prior strokes without residual deficits, Peripheral vascular disease, presents with bright lights in vision while lying in bed trying to go to sleep early this morning. Patient states that she has had intermittent mild frontal headaches over the past few days, malaise, weakness and mild intermittent palpitations and had a Covid test done yesterday due to the symptoms. She does not have the results yet. Denies cough, shortness of breath, fever, diarrhea, nausea or other symptoms. Denies chest pain. Patient states she has had a Holter monitor before that showed no concerning findings.Denies other neurologic deficits Review of Systems Ten Systems: 10 systems reviewed and negative Constitutional: denies: Fever, Chills Eyes: reports: Other (Bright spots in vision) Ears: denies: Loss of hearing Neurologic: reports: Generalized weakness, Headache. 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, Other HEENT: Tonsil/Adenoidectomy - Present Medications Home Medications: Ambulatory Orders Medication Instructions Recorded Confirmed Citalopram [CeleXA] 40 mg PO DAILY 11/30/13 02/16/17 Zolpidem [Ambien] 2.5 mg PO HS 11/30/13 02/16/17 - Allergies Allergies/Adverse Reactions: Allergies Allergy/AdvReac Type Severity Reaction Status Date / Time Penicillins Allergy Anaphylaxis Verified 07/28/20 03:57 Sulfa (Sulfonamide Allergy blisters Verified 05/19/20 01:59 Antibiotics) morphine AdvReac Hallucinati Verified 05/19/20 01:59 ons - Social History Does the pt smoke?: No Smoking Status: Never smoker Does the pt drink ETOH?: Yes Does the pt have substance abuse?: No - Immunizations Immunizations are current?: Yes - POLST Patient has POLST: No POLST Status: Full Code PD ED PE NORMAL - Vitals Vital signs reviewed: Yes - General General: Alert and oriented X 3 - HEENT HEENT: Atraumatic, PERRL, EOMI - Neck Neck: Supple, no meningeal sign - Cardiac Cardiac: Other (Bradycardic rate, regular rhythm) - Respiratory Respiratory: No respiratory distress, Clear bilaterally - Abdomen Abdomen: Normal bowel sounds - Female Female : Deferred - Rectal Rectal: Deferred - Back Back: No spinal TTP - Derm Derm: Normal color - Extremities Extremities: No deformity - Neuro Neuro: Alert and oriented X 3, equipment technician 2-12 intact, No motor deficit, No sensory deficit, Normal speech, Other (Normal cerebellar testing and normal gait) - Psych Psych: Normal mood, Normal affect Results - Vitals Vitals: Vital Signs - 24 hr 07/28/20 07/28/20 03:57 04:08 Temperature 36.5 C Heart Rate 55 L 54 L Respiratory 16 16 Rate Blood Pressure 169/90 H 191/69 H O2 Saturation 100 100 Oxygen O2 Source Room air - EKG (time done) 0412 Rate: Rate (enter#) (50), Rei Rhythm: Sinus bradycardia [place]: Normal Intervals: Prolonged CA QRS: Normal Ischemia: Normal ST segments PD MEDICAL DECISION MAKING - ED course Complexity details: reviewed results, d/w patient ED course: 80-year-old woman presented for bright lights in vision while trying to go to sleep tonight. After conducting a neurological exam which I found to be normal she was reassured and states that she would like to follow-up with her primary doctor in the morning. I offered blood work and head CT but she declined given that it is unlikely that she had a stroke and that she is asymptomatic at present.Shared decision made to discharge home with outpatient follow-up. Strict return precautions given. Departure - Departure Disposition: 01 Home, Self Care Clinical Impression: Vision changes, First degree heart block Condition: Good Instructions: Bradycardia Comments: You were seen in the emergency department for a medical screening exam. You told us that you are having vision changes so I did a neurologic exam on you. Your cranial nerves and cerebellar testing were normal. Given these symptoms is a good idea to follow-up with your primary doctor this week. Return to the ED if you have any new or worsening symptoms. Please note that your heart rate was mildly lower than normal. Since you said that this has been the case before, it is not something that you need to be admitted for. You should however follow-up with Dr. Soto about this and get blood work this week if she thinks it is indicated.
[2020-07-28 04:39] VITALS: BP 160/72
== END 2020-07-28 04:37 | disposition home or self-care (01) ==
LOC: ED 03:52
DX: H53.8 Other visual disturbances (principal); I44.0 Atrioventricular block, first degree; R00.1 Bradycardia, unspecified
CPT/HCPCS: 93005; 99284

== ENCOUNTER 2021-01-06 08:00 | Outpatient (CLI) | payer MEDICARE, OTHER ==
[2021-01-06 18:15] LABS: THYROID STIMULATING HORMONE 1.68 uIU/mL (0.34-5.60)
[2021-01-06 18:37] LABS: CALCIUM 9.5 mg/dL (8.5-10.3); CREATININE 0.7 mg/dL (0.4-1.0); POTASSIUM 4.2 mmol/L (3.5-5.0)
== END 2021-01-06 23:59 | disposition home or self-care (01) ==
LOC: LAB.N 08:00
PROVIDERS: ATTEND Family Medicine
DX: I10 Essential (primary) hypertension (principal)
CPT/HCPCS: 36415; 80048; 84443

== ENCOUNTER 2021-03-23 08:00 | Outpatient (CLI) | payer MEDICARE, OTHER ==
[2021-03-23 17:45] LABS: BASOPHILS # (AUTO) 0.1 10^3/uL (0.0-0.1); BASOPHILS % (AUTO) 0.9 %; EOSINOPHILS # (AUTO) 0.2 10^3/uL (0.0-0.7); EOSINOPHILS % (AUTO) 3.2 %; HCT - HEMATOCRIT 44.2 % (37.0-47.0); HGB - HEMOGLOBIN 14.2 g/dL (12.0-16.0); LYMPHOCYTES # (AUTO) 1.3 10^3/uL (1.5-3.5); LYMPHOCYTES % (AUTO) 23.2 %; MEAN CORPUSCULAR HEMOGLOBIN 29.8 pg (27.0-31.0); MEAN CORPUSCULAR HGB CONC 32.1 g/dL (32.0-36.0); MEAN CORPUSCULAR VOLUME 92.7 fL (81.0-99.0); MEAN PLATELET VOLUME 11.6 fL (7.9-10.8); MONOCYTES # (AUTO) 0.3 10^3/uL (0.0-1.0); MONOCYTES % (AUTO) 5.9 %; NEUTROPHILS # (AUTO) 3.6 10^3/uL (1.5-6.6); NEUTROPHILS % (AUTO) 66.4 %; PLT - PLATELET COUNT 221 10^3/uL (130-450); RED BLOOD COUNT 4.77 10^6/uL (4.20-5.40); RED CELL DISTRIBUTION WIDTH 12.9 % (12.0-15.0); WHITE BLOOD COUNT 5.4 x10^3/uL (4.8-10.8)
[2021-03-23 18:11] LABS: ALBUMIN 3.8 g/dL (3.2-5.5); ALBUMIN/GLOBULIN RATIO 1.5 (1.0-2.2); ALKALINE PHOSPHATASE 43 IU/L (42-121); ALT ALANINE AMINOTRANSFERASE 15 IU/L (10-60); AST ASPARTATE AMINOTRANSFERASE 20 IU/L (10-42); BUN - BLOOD UREA NITROGEN 13 mg/dL (6-20); CARBON DIOXIDE - CO2 26 mmol/L (21-32); CHLORIDE 103 mmol/L (101-111); CHOL/HDL RATIO 4.5 (<4.4); CHOLESTEROL 246 mg/dL; CREATININE 0.7 mg/dL (0.4-1.0); GFR - MDRD 81 (>89); GLUCOSE 112 mg/dL (70-100); HDL CHOLESTEROL 55 mg/dL; LDL CHOLESTEROL,CALCULATED 171 mg/dL; LDL/HDL RATIO 3.1 (<4.4); POTASSIUM 4.4 mmol/L (3.5-5.0); SODIUM 137 mmol/L (135-145); TOTAL PROTEIN 6.3 g/dL (6.7-8.2); TRIGLYCERIDES 100 mg/dL; VLDL CHOLESTEROL 20 mg/dL
== END 2021-03-23 23:59 | disposition home or self-care (01) ==
LOC: LAB.WCP 08:00
PROVIDERS: ATTEND Family Medicine
DX: I63.9 Cerebral infarction, unspecified (principal); I10 Essential (primary) hypertension
CPT/HCPCS: 36415; 80053; 80061; 83721; 85025

== ENCOUNTER 2021-04-07 08:00 | Outpatient (CLI) | payer MEDICARE, OTHER | END 2021-04-07 23:59 | disposition home or self-care (01) | LOC: LAB.N 08:00 | PROVIDERS: ATTEND Physician Assistant Medical | DX: R05 Cough (principal); Z20.822 Contact with and (suspected) exposure to COVID-19 ==

== ENCOUNTER 2021-05-06 09:55 | Outpatient (CLI) | payer MEDICARE, OTHER ==
[2021-05-06 14:56] LABS: HCT - HEMATOCRIT 42.8 % (37.0-47.0); HGB - HEMOGLOBIN 13.9 g/dL (12.0-16.0); MEAN CORPUSCULAR HEMOGLOBIN 29.6 pg (27.0-31.0); MEAN CORPUSCULAR HGB CONC 32.5 g/dL (32.0-36.0); MEAN CORPUSCULAR VOLUME 91.1 fL (81.0-99.0); MEAN PLATELET VOLUME 11.7 fL (7.9-10.8); RED BLOOD COUNT 4.7 10^6/uL (4.20-5.40); RED CELL DISTRIBUTION WIDTH 12.7 % (12.0-15.0); WHITE BLOOD COUNT 5.4 x10^3/uL (4.8-10.8)
[2021-05-06 15:14] LABS: URIC ACID 4.8 mg/dL (2.6-7.2)
[2021-05-06 15:20] LABS: RHEUMATOID FACTOR NEGATIVE (Negative)
[2021-05-06 15:52] LABS: CRP - C-REACTIVE PROTEIN < 1.0 mg/dL (0-1.0)
[2021-05-09 12:41] LABS: ANA SCREEN NEGATIVE (NEGATIVE)
[2021-05-09 14:21] LABS: DNA (DS) ANTIBODY <1 IU/mL
[2021-05-10 13:01] LABS: CYCLIC CITRULL PEPTIDE CCP IGG <16 UNITS
== END 2021-05-06 23:59 | disposition home or self-care (01) ==
LOC: LAB.N 09:55
PROVIDERS: ATTEND Family Medicine
DX: M25.571 Pain in right ankle and joints of right foot (principal)
CPT/HCPCS: 36415; 84550; 85027; 85651; 86038; 86140; 86200; 86225; 86430

== ENCOUNTER 2021-05-06 09:56 | Outpatient (CLI) | payer MEDICARE, OTHER ==
--- NOTE | 2021-05-06 10:44 | XRAY Report ---
PROCEDURE: Ankle 3 View RT INDICATIONS: RIGHT ANKLE JOINT PAIN TECHNIQUE: 3 views of the ankle were acquired. COMPARISON: None FINDINGS: Bones: No fractures or dislocations. Ankle mortise is normally aligned. No suspicious bony lesions . Age-appropriate degenerative changes are seen. The talar dome demonstrates an unremarkable appea talon. Soft tissues: There is mild soft tissue swelling seen. IMPRESSION: Mild soft tissue swelling. Age-appropriate degenerative changes are seen. If it would be helpful for clinical management decision making, please consider a dedicated, schedule d ankle MRI for further evaluation (assuming that there is no contraindication). Reviewed by: Jose Prescott MD on 05/06/2021 9:43 AM [facility] Approved by: Jose Prescott MD on 05/06/2021 9:43 AM [facility] Station ID: [id number]
== END 2021-05-06 23:59 | disposition home or self-care (01) ==
LOC: DI.N 09:56
PROVIDERS: ATTEND Family Medicine
DX: M25.571 Pain in right ankle and joints of right foot (principal); M25.471 Effusion, right ankle

== ENCOUNTER 2021-08-02 13:51 | Outpatient (CLI) | payer MEDICARE, OTHER ==
--- NOTE | 2021-08-02 15:06 | XRAY Report ---
PROCEDURE: Wrist 4 View LT INDICATIONS: L WRIST PX TECHNIQUE: 4 views of the wrist were acquired. COMPARISON: August 14, 2017 FINDINGS: BONES: Slight cortical discontinuity of the distal radius, which may reflect a minimal displaced frac ture. The carpal bones are normally aligned. Remote fracture deformity of the ulnar styloid. Mild ost eophytosis about the first carpal metacarpal articulation. SOFT TISSUES: Diffuse edema. IMPRESSION: 1.Slight cortical discontinuity of the distal radius, which may reflect a minimal displaced fracture. Reviewed by: Lawrence Santana MD on 08/02/2021 3:05 PM [facility] Approved by: Lawrence Santana MD on 08/02/2021 3:05 PM [facility] Station ID: [id number]
== END 2021-08-02 23:59 ==
LOC: DI.N 13:51
PROVIDERS: ATTEND Family Medicine
DX: R93.6 Abnormal findings on diagnostic imaging of limbs (principal)

== ENCOUNTER 2021-08-29 12:10 | Outpatient (CLI) | payer MEDICARE, OTHER ==
--- NOTE | 2021-08-29 16:24 | XRAY Report ---
PROCEDURE: Wrist 3 View LT INDICATIONS: LEFT WRIST FX TECHNIQUE: 3 views of the wrist were acquired. COMPARISON: Wrist x-ray 08/02/2021 FINDINGS: Bones: Old ulnar styloid fracture is present. Arthritic changes noted at the first MCP narrowing. Pre vious discontinuity of the cortex at the distal radius is again noted. It is stable in appearance. No suspicious bony lesions. Scaphoid view: Not obtained. Soft tissues: No suspicious soft tissue calcifications. IMPRESSION: Stable appearance of distal radial cortical irregularity suspicious for nondisplaced fracture. Reviewed by: Irena Alfred MD on 08/29/2021 4:22 PM PST Approved by: Irena Alfred MD on 08/29/2021 4:22 PM [facility] Station ID: [id number]
== END 2021-08-29 12:11 | disposition home or self-care (01) ==
LOC: DI.WOS 12:10
PROVIDERS: ATTEND Orthopaedic Surgery
DX: S52.515 Nondisplaced fracture of left radial styloid process (principal)

== ENCOUNTER 2021-09-21 13:21 | Outpatient (CLI) | payer MEDICARE, OTHER ==
--- NOTE | 2021-09-21 15:28 | XRAY Report ---
PROCEDURE: Wrist 3 View LT INDICATIONS: NONDISPL FX OF LEFT RADIAL STYLOID PROCESS TECHNIQUE: 3 views of the wrist were acquired. COMPARISON: 08/29/2021 FINDINGS: Bones: Diffuse demineralization. No change in slight articular surface cortical lucency of the distal radius. Diffuse radiocarpal joint space loss. Fragmentation of remote, corticated ulnar styloid frac ture. Mild osteoarthritic changes at the first carpometacarpal joint and triscaphe articulation. Soft tissues: No suspicious soft tissue calcifications. IMPRESSION: Stable position of nondisplaced, intra-articular distal radius fracture. Reviewed by: Nancy Jha MD on 09/21/2021 3:27 PM PST Approved by: Nancy Jha MD on 09/21/2021 3:27 PM PST Station ID: [id number]
== END 2021-09-21 13:22 | disposition home or self-care (01) ==
LOC: DI.N 13:21
PROVIDERS: ATTEND Physician Assistant
DX: S52.572D Other intraarticular fracture of lower end of left radius, subsequent encounter for closed fracture with routine healing (principal)

== ENCOUNTER 2021-10-31 10:05 | Outpatient (CLI) | payer MEDICARE, OTHER ==
[2021-10-31 11:53] LABS: BASOPHILS # (AUTO) 0.1 10^3/uL (0.0-0.1); BASOPHILS % (AUTO) 1.4 %; EOSINOPHILS # (AUTO) 0.2 10^3/uL (0.0-0.7); EOSINOPHILS % (AUTO) 4.8 %; HCT - HEMATOCRIT 42.9 % (37.0-47.0); HGB - HEMOGLOBIN 14.6 g/dL (12.0-16.0); LYMPHOCYTES # (AUTO) 1.3 10^3/uL (1.5-3.5); LYMPHOCYTES % (AUTO) 25.9 %; MEAN CORPUSCULAR HEMOGLOBIN 30.2 pg (27.0-31.0); MEAN CORPUSCULAR VOLUME 88.8 fL (81.0-99.0); MONOCYTES # (AUTO) 0.3 10^3/uL (0.0-1.0); MONOCYTES % (AUTO) 6.5 %; NEUTROPHILS # (AUTO) 3.1 10^3/uL (1.5-6.6); NEUTROPHILS % (AUTO) 61.2 %; PLT - PLATELET COUNT 224 10^3/uL (130-450); RED BLOOD COUNT 4.83 10^6/uL (4.20-5.40); RED CELL DISTRIBUTION WIDTH 12.9 % (12.0-15.0); WHITE BLOOD COUNT 5.1 x10^3/uL (4.8-10.8)
[2021-10-31 12:44] LABS: THYROID STIMULATING HORMONE 2.11 uIU/mL (0.34-5.60)
[2021-10-31 12:45] LABS: ALBUMIN 3.6 g/dL (3.2-5.5); ALBUMIN/GLOBULIN RATIO 1.4 (1.0-2.2); ALKALINE PHOSPHATASE 41 IU/L (42-121); ALT ALANINE AMINOTRANSFERASE 15 IU/L (10-60); AST ASPARTATE AMINOTRANSFERASE 18 IU/L (10-42); BILIRUBIN,TOTAL 1.2 mg/dL (0.2-1.0); BUN - BLOOD UREA NITROGEN 15 mg/dL (6-20); CALCIUM 9.3 mg/dL (8.5-10.3); CARBON DIOXIDE - CO2 26 mmol/L (21-32); CHLORIDE 105 mmol/L (101-111); CHOL/HDL RATIO 4.4 (<4.4); CHOLESTEROL 232 mg/dL; CREATININE 0.7 mg/dL (0.4-1.0); GFR - MDRD 80 (>89); GLUCOSE 100 mg/dL (70-100); HDL CHOLESTEROL 53 mg/dL; LDL CHOLESTEROL,CALCULATED 161 mg/dL; POTASSIUM 3.9 mmol/L (3.5-5.0); SODIUM 139 mmol/L (135-145); TOTAL PROTEIN 6.2 g/dL (6.7-8.2); TRIGLYCERIDES 91 mg/dL; VLDL CHOLESTEROL 18 mg/dL
== END 2021-10-31 10:06 | disposition home or self-care (01) ==
LOC: LAB.N 10:05
PROVIDERS: ATTEND Family Medicine
DX: I10 Essential (primary) hypertension (principal); E78.5 Hyperlipidemia, unspecified; E03.9 Hypothyroidism, unspecified
CPT/HCPCS: 36415; 80053; 80061; 83721; 84443; 85025

== ENCOUNTER 2021-11-02 12:25 | Outpatient (CLI) | payer MEDICARE, OTHER ==
--- NOTE | 2021-11-02 13:24 | XRAY Report ---
PROCEDURE: Knee 4 View BILAT INDICATIONS: KNEE PAIN, BILAT TECHNIQUE: 4 views of the bilateral knee(s) were acquired. COMPARISON: None. FINDINGS: Bones: No fractures or dislocations. No suspicious bony lesions. There is moderate to severe later al compartment bilaterally slightly more prominent on the right. Moderate medial and patellofemoral c ompartment narrowing is present bilaterally. Prominent periarticular osteophytes most notable in the lateral right compartment. No erosions. Soft tissues: No joint effusion. No suspicious soft tissue calcifications. Presumed vascular stent is noted overlying the left extremity. IMPRESSION: Tricompartmental arthritic changes bilaterally as above. Reviewed by: Irena Alfred MD on 11/02/2021 1:23 PM PDT Approved by: Irena Alfred MD on 11/02/2021 1:23 PM PDT Station ID: [id number]
== END 2021-11-02 12:26 | disposition home or self-care (01) ==
LOC: DI.N 12:25
PROVIDERS: ATTEND Family Medicine
DX: M17.0 Bilateral primary osteoarthritis of knee (principal)

== ENCOUNTER 2022-02-09 22:16 | Emergency (ER) | payer MEDICARE, OTHER ==
[2022-02-09] MEDS ORDERED: LIDOCAINE PATCH 5% TOP STA (23:12)
--- NOTE | 2022-02-10 00:51 | XRAY Report ---
PROCEDURE: Ribs w/PA Chest RT INDICATIONS: fall/pain TECHNIQUE: 3 views of the left ribs were acquired, along with a single view chest. COMPARISON: 05/19/2020 FINDINGS: Surgical changes and devices: A few surgical clips are demonstrated projecting over the left hemithor ax. Bones and chest wall: No displaced rib fracture identified. No suspicious bony lesions. Overlying s oft tissues appear unremarkable. Lungs and pleura: No pleural effusions or pneumothorax. Lungs appear clear. Mediastinum: Mediastinal contours appear normal. Heart size is normal. IMPRESSION: 1. No displaced rib fracture identified. Reviewed by: Pa Lazo MD on 02/10/2022 12:55 AM PDT Approved by: Pa Lazo MD on 02/10/2022 12:55 AM PDT Station ID: [id number]
[2022-02-10] MEDS ORDERED: ACETAMINOPHEN 325 MG TABLET PO STA (00:54)
--- NOTE | 2022-02-10 00:59 | ED Physician Documentation ---
History of Present Illness - Stated complaint Stated Complaint: R RIB PAIN - Chief complaint Chief Complaint: Trauma Ch/Bk - History obtained from History obtained from: Patient - Additonal information Additional information: Patient is an 81-year-old female with a history of atrial fibrillation (on Eliquis) presenting for evaluation of right rib pain after falling this evening. Patient was at a restaurant at 5:30 PM when she went to sit down In a chair and missed the chair and fell. She hit her right chest against the table. She fell forward and did not hit her head or lose consciousness. She finished her meal and came home and walked her dog. She had called a friend to come help wrap her chest but when she told her friend about the fall, her friend recommended she come to the emergency department for evaluation. Patient has not taken anything yet for the pain. Pain is worse with certain movements such as bending down. It is better at rest. It is sharp. It does not radiate elsewhere. Review of Systems Constitutional: denies: Fever Nose: denies: Congestion Cardiac: reports: Chest pain / pressure (Right chest wall). 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, Other HEENT: Tonsil/Adenoidectomy - Present Medications Home Medications: Ambulatory Orders Medication Instructions Recorded Confirmed Citalopram [CeleXA] 40 mg PO DAILY 11/30/13 02/16/17 Zolpidem [Ambien] 2.5 mg PO HS 11/30/13 02/16/17 Lidocaine Patch 5% [Lidoderm Patch] 1 patch TOP DAILY PRN #10 patch 02/10/22 - Allergies Allergies/Adverse Reactions: Allergies Allergy/AdvReac Type Severity Reaction Status Date / Time Penicillins Allergy Anaphylaxis Verified 02/09/22 23:01 Sulfa (Sulfonamide Allergy blisters Verified 02/09/22 23:01 Antibiotics) morphine AdvReac Hallucinati Verified 02/09/22 23:01 ons - Social History Does the pt smoke?: No Smoking Status: Never smoker Does the pt drink ETOH?: Yes Does the pt have substance abuse?: No - Immunizations Immunizations are current?: Yes - POLST Patient has POLST: No POLST Status: Full Code PD ED PE NORMAL - General General: Alert and oriented X 3, No acute distress, Well developed/nourished - HEENT HEENT: Atraumatic, Moist mucous membranes - Neck Neck: Supple, no meningeal sign - Cardiac Cardiac: No murmur, Strong equal pulses, Other (Right lower chest wall tenderness to palpation, No bruising, no deformity, no flail segment). No: RRR (Tachycardic, irregularly irregular) - Respiratory Respiratory: No respiratory distress, Clear bilaterally - Abdomen Abdomen: Normal bowel sounds, Soft, Non tender, Non distended - Back Back: No spinal TTP - Derm Derm: Warm and dry, No rash - Extremities Extremities: No deformity, No edema - Neuro Neuro: Alert and oriented X 3, No motor deficit, Normal speech - Psych Psych: Normal mood Results - Vitals Vitals: Vital Signs - 24 hr 02/09/22 02/09/22 02/10/22 22:55 23:03 01:01 Temperature 36.6 C 36.6 C Heart Rate 129 H 129 H 90 Respiratory 20 20 20 Rate Blood Pressure 115/90 H 115/90 H 119/107 H O2 Saturation 99 99 96 Oxygen O2 Source Room air PD MEDICAL DECISION MAKING - ED course Complexity details: reviewed results, re-evaluated patient, d/w patient ED course: Patient is an 81-year-old female with right chest wall pain after missing a chair and falling. She did not hit her head or lose consciousness. She denies pain elsewhere. She has been active this evening including walking her dog. On exam, she had mild tenderness to the right chest wall without any visible deformity. An x-ray was obtained with no pneumothorax and no visible rib injury. Patient did feel better after lidocaine patch and acetaminophen. Pain is reproducible and worse with movements, thus I do not feel it is cardiac in etiology. She was counseled on continuing with supportive care as well as strict return precautions for any worsening symptoms. Departure - Departure Disposition: 01 Home, Self Care Clinical Impression: Right-sided chest wall pain Fall Qualifiers: Encounter type: initial encounter Qualified Code(s): W19.XXXA - Unspecified fall, initial encounter Condition: Stable Instructions: ED Contusion Chest Wall Prescriptions: Lidocaine Patch 5% [Lidoderm Patch] 1 patch TOP DAILY PRN #10 patch PRN Reason: pain Comments: You were evaluated for pain to your right ribs after falling today. An x-ray of your chest and ribs was done and does not show any fractures to the ribs. Please use lidocaine patches and acetaminophen as needed for pain. [facility] [place]. If you have any worsening pain, new pain, difficulty breathing please return to the emergency department. Discharge Date/Time: 02/10/22 01:12
[2022-02-10 01:02] VITALS: BP 119/107
== END 2022-02-10 01:12 | disposition home or self-care (01) ==
LOC: ED 22:16
DX: S29.9XXA Unspecified injury of thorax, initial encounter (principal); W07.XXXA Fall from chair, initial encounter; Y92.511 Restaurant or cafe as the place of occurrence of the external cause; I48.91 Unspecified atrial fibrillation; Z79.01 Long term (current) use of anticoagulants
CPT/HCPCS: 36415; 71101; 99282; 99283; A9270

== ENCOUNTER 2022-08-25 12:33 | Outpatient (CLI) | payer MEDICARE, OTHER ==
[2022-08-25 18:28] LABS: BASOPHILS # (AUTO) 0.1 10^3/uL (0.0-0.1); BASOPHILS % (AUTO) 1.5 %; EOSINOPHILS # (AUTO) 0.1 10^3/uL (0.0-0.7); EOSINOPHILS % (AUTO) 2.7 %; HCT - HEMATOCRIT 42.4 % (37.0-47.0); HGB - HEMOGLOBIN 13.8 g/dL (12.0-16.0); LYMPHOCYTES # (AUTO) 1.4 10^3/uL (1.5-3.5); LYMPHOCYTES % (AUTO) 27.4 %; MEAN CORPUSCULAR HEMOGLOBIN 29.9 pg (27.0-31.0); MEAN CORPUSCULAR HGB CONC 32.5 g/dL (32.0-36.0); MEAN PLATELET VOLUME 11.8 fL (7.9-10.8); MONOCYTES # (AUTO) 0.3 10^3/uL (0.0-1.0); MONOCYTES % (AUTO) 5.5 %; NEUTROPHILS # (AUTO) 3.3 10^3/uL (1.5-6.6); NEUTROPHILS % (AUTO) 62.7 %; PLT - PLATELET COUNT 192 10^3/uL (130-450); RED BLOOD COUNT 4.61 10^6/uL (4.20-5.40); RED CELL DISTRIBUTION WIDTH 13.2 % (12.0-15.0); WHITE BLOOD COUNT 5.3 x10^3/uL (4.8-10.8)
[2022-08-25 18:45] LABS: ALBUMIN 3.6 g/dL (3.2-5.5); ALBUMIN/GLOBULIN RATIO 1.4 (1.0-2.2); ALKALINE PHOSPHATASE 41 IU/L (42-121); ALT ALANINE AMINOTRANSFERASE 11 IU/L (10-60); AST ASPARTATE AMINOTRANSFERASE 16 IU/L (10-42); BILIRUBIN,TOTAL 1.2 mg/dL (0.2-1.0); BUN - BLOOD UREA NITROGEN 15 mg/dL (6-20); CALCIUM 9.5 mg/dL (8.5-10.3); CARBON DIOXIDE - CO2 30 mmol/L (21-32); CHLORIDE 107 mmol/L (101-111); CHOL/HDL RATIO 4.3 (<4.4); CHOLESTEROL 243 mg/dL; CREATININE 0.8 mg/dL (0.4-1.0); GFR - MDRD 69 (>89); GLUCOSE 88 mg/dL (70-100); HDL CHOLESTEROL 57 mg/dL; LDL CHOLESTEROL,CALCULATED 177 mg/dL; LDL/HDL RATIO 3.1 (<4.4); POTASSIUM 4.3 mmol/L (3.5-5.0); SODIUM 142 mmol/L (135-145); TOTAL PROTEIN 6.1 g/dL (6.7-8.2); TRIGLYCERIDES 43 mg/dL; VLDL CHOLESTEROL 9 mg/dL
== END 2022-08-25 12:34 | disposition home or self-care (01) ==
LOC: LAB.N 12:33
PROVIDERS: ATTEND Nurse Practitioner Family
DX: I10 Essential (primary) hypertension (principal); I73.9 Peripheral vascular disease, unspecified
CPT/HCPCS: 36415; 80053; 80061; 83721; 85025

== ENCOUNTER 2022-09-11 08:00 | Outpatient (CLI) | payer MEDICARE, OTHER ==
[2022-09-11 07:45] LABS: FECAL OCCULT BLOOD (FIT) NEGATIVE (NEGATIVE)
== END 2022-09-11 23:59 | disposition home or self-care (01) ==
LOC: LAB.R 08:00
PROVIDERS: ATTEND Nurse Practitioner Family
DX: R19.5 Other fecal abnormalities (principal)
CPT/HCPCS: 82274

== ENCOUNTER 2023-06-17 15:52 | Outpatient (CLI) | payer MEDICARE, OTHER ==
--- NOTE | 2023-06-18 13:55 | Ultrasound Report ---
PROCEDURE: Duplex Ext Veins Bilateral INDICATIONS: LUIS Ogden TECHNIQUE: Real-time imaging, as well as color and pulse Doppler interrogation, were performed of the deep veins of both legs from the inguinal ligament to the popliteal fossa. Attempted visualization of the calf veins was performed. COMPARISON: None FINDINGS: The deep veins are normally compressible, and free of intraluminal thrombus. Color and pu lse Doppler demonstrate normal phasic intravascular flow. There is normal augmentation response to d istal compression maneuver. IMPRESSION: No deep venous thrombosis of the visualized lower extremities. Reviewed by: Andreina Guerrier MD on 06/18/2023 1:54 PM PST Approved by: Andreina Guerrier MD on 06/18/2023 1:54 PM PST Station ID: [id number]
--- NOTE | 2023-06-18 14:12 | Ultrasound Report ---
PROCEDURE: Ankle Brachial Index INDICATIONS: PVD, PAD TECHNIQUE: Ankle-brachial indices were obtained bilaterally and recorded. COMPARISONS: None. FINDINGS: Right lower extremity (CM/S): Common femoral artery: 144, biphasic Profunda artery: 82, biphasic SFA proximal: 87, biphasic SFA mid: 118, biphasic SFA distal: 152, biphasic Popliteal artery: 71, biphasic SURGICAL INSTRUMENT MAKER: 79, biphasic JELENA/DP: 40/12, biphasic/monophasic Grayscale findings: Scattered atherosclerotic plaque. Left lower extremity (CM/S): Common femoral artery: 89, biphasic Profunda artery: 81, monophasic SFA proximal (at stent): 82, biphasic SFA mid (stent): 73, biphasic SFA distal (post stent): 86, biphasic Popliteal artery: 73, biphasic SURGICAL INSTRUMENT MAKER: 32, biphasic JELENA/DP: 36/22, biphasic/monophasic Grayscale findings: Patent stent from the proximal SFA to distal SFA. Scattered atherosclerotic plaqu e. Right ankle brachial index (LYNDSEY): 0.8 Left ankle brachial index (LYNDSEY): 0.7 IMPRESSION: 1. Right lower extremity: -Resting LYNDSEY is mildly reduced at 0.8. -Monophasic DPA. Remainder of the arterial vasculature is multiphasic with no velocity shift to sugge st a hemodynamically significant stenosis. 2. Left lower extremity: -Resting LYNDSEY is moderately reduced at 0.7. -Patent proximal to distal SFA stent with no stenosis. -Monophasic DPA and profunda femoral artery. Remainder of the arterial vasculature is multiphasic wit h no velocity shift to suggest a hemodynamically significant stenosis. Reviewed by: Andreina Guerrier MD on 06/18/2023 2:10 PM PST Approved by: Andreina Guerrier MD on 06/18/2023 2:10 PM PST Station ID: [id number]
--- NOTE | 2023-06-18 14:13 | Ultrasound Report ---
PROCEDURE: Duplex Lwr Ext Arterial Bilat INDICATIONS: PVD, PAD TECHNIQUE: Color and pulse Doppler interrogation was performed of both lower extremity arterial systems, with im age documentation. COMPARISONS: None. FINDINGS: Right lower extremity (CM/S): Common femoral artery: 144, biphasic Profunda artery: 82, biphasic SFA proximal: 87, biphasic SFA mid: 118, biphasic SFA distal: 152, biphasic Popliteal artery: 71, biphasic FLEECER: 79, biphasic JELENA/DP: 40/12, biphasic/monophasic Grayscale findings: Scattered atherosclerotic plaque. Left lower extremity (CM/S): Common femoral artery: 89, biphasic Profunda artery: 81, monophasic SFA proximal (at stent): 82, biphasic SFA mid (stent): 73, biphasic SFA distal (post stent): 86, biphasic Popliteal artery: 73, biphasic FLEECER: 32, biphasic JELENA/DP: 36/22, biphasic/monophasic Grayscale findings: Patent stent from the proximal SFA to distal SFA. Scattered atherosclerotic plaqu e. Right ankle brachial index (LYNDSEY): 0.8 Left ankle brachial index (LYNDSEY): 0.7 IMPRESSION: 1. Right lower extremity: -Resting LYNDSEY is mildly reduced at 0.8. -Monophasic DPA. Remainder of the arterial vasculature is multiphasic with no velocity shift to sugge st a hemodynamically significant stenosis. 2. Left lower extremity: -Resting LYNDSEY is moderately reduced at 0.7. -Patent proximal to distal SFA stent with no stenosis. -Monophasic DPA and profunda femoral artery. Remainder of the arterial vasculature is multiphasic wit h no velocity shift to suggest a hemodynamically significant stenosis. Reviewed by: Andreina Guerrier MD on 06/18/2023 2:12 PM PST Approved by: Andreina Guerrier MD on 06/18/2023 2:12 PM PST Station ID: [id number]
== END 2023-06-17 15:53 | disposition home or self-care (01) ==
LOC: DI 15:52
PROVIDERS: ATTEND Nurse Practitioner Family
DX: I73.9 Peripheral vascular disease, unspecified (principal)
CPT/HCPCS: 93922; 93925; 93970

== ENCOUNTER 2023-11-27 10:31 | Outpatient (CLI) | payer MEDICARE, OTHER ==
[2023-11-27 11:50] LABS: BASOPHILS # (AUTO) 0.1 10^3/uL (0.0-0.1); BASOPHILS % (AUTO) 1.1 %; EOSINOPHILS # (AUTO) 0.1 10^3/uL (0.0-0.7); EOSINOPHILS % (AUTO) 2.5 %; HCT - HEMATOCRIT 41.6 % (37.0-47.0); HGB - HEMOGLOBIN 13.7 g/dL (12.0-16.0); LYMPHOCYTES # (AUTO) 1.3 10^3/uL (1.5-3.5); LYMPHOCYTES % (AUTO) 24.8 %; MEAN CORPUSCULAR HEMOGLOBIN 29.5 pg (27.0-31.0); MEAN CORPUSCULAR HGB CONC 32.9 g/dL (32.0-36.0); MEAN CORPUSCULAR VOLUME 89.5 fL (81.0-99.0); MEAN PLATELET VOLUME 11.1 fL (7.9-10.8); MONOCYTES # (AUTO) 0.4 10^3/uL (0.0-1.0); MONOCYTES % (AUTO) 6.9 %; NEUTROPHILS # (AUTO) 3.4 10^3/uL (1.5-6.6); NEUTROPHILS % (AUTO) 64.5 %; PLT - PLATELET COUNT 202 10^3/uL (130-450); RED BLOOD COUNT 4.65 10^6/uL (4.20-5.40); WHITE BLOOD COUNT 5.2 x10^3/uL (4.8-10.8)
[2023-11-27 12:28] LABS: THYROID STIMULATING HORMONE 1.46 uIU/mL (0.34-5.60)
[2023-11-27 12:35] LABS: ALBUMIN/GLOBULIN RATIO 1.7 (1.0-2.2); BILIRUBIN,TOTAL 0.9 mg/dL (0.2-1.0); CALCIUM 10.3 mg/dL (8.5-10.3); CREATININE 0.6 mg/dL (0.6-1.3); POTASSIUM 4.3 mmol/L (3.5-4.5); TOTAL PROTEIN 6.4 g/dL (6.4-8.9)
== END 2023-11-27 10:32 | disposition home or self-care (01) ==
LOC: LAB.N 10:31
PROVIDERS: ATTEND Nurse Practitioner Family
DX: Z91.89 Other specified personal risk factors, not elsewhere classified (principal); I48.91 Unspecified atrial fibrillation; I10 Essential (primary) hypertension; E03.9 Hypothyroidism, unspecified
CPT/HCPCS: 36415; 80053; 84443; 85025

== ENCOUNTER 2023-12-13 11:11 | Outpatient (CLI) | payer MEDICARE, OTHER | END 2023-12-13 23:59 | disposition critical access hospital (66) | LOC: EMS 11:11 | DX: M79.622 Pain in left upper arm (principal); M25.512 Pain in left shoulder; S49.92XA Unspecified injury of left shoulder and upper arm, initial encounter; W18.39XA Other fall on same level, initial encounter; Y93.K1 Activity, walking an animal; Y92.830 Public park as the place of occurrence of the external cause; Z79.01 Long term (current) use of anticoagulants | CPT/HCPCS: A0425; A0427 ==

== ENCOUNTER 2023-12-13 11:30 | Emergency (ER) | payer MEDICARE, OTHER ==
[2023-12-13 11:46] VITALS: O2SAT 97
[2023-12-13] MEDS: ONDANSETRON 4 MG/2 ML VIAL IVP STA (11:46)
[2023-12-13] MEDS: LIDOCAINE PATCH 5% TOP STA (12:04)
--- NOTE | 2023-12-13 12:08 | XRAY Report ---
PROCEDURE: Shoulder 2+V LT INDICATIONS: fall/pain TECHNIQUE: 3 views of the shoulder were acquired. COMPARISON: None. FINDINGS: Bones: 2 part fracture of the left humeral head. Soft tissues: No suspicious soft tissue calcifications. The visualized lungs are within normal limi ts. IMPRESSION: 2 part fracture of the left humeral head. Reviewed by: Shoaib Parker MD on 12/13/2023 12:07 PM PDT Approved by: Shoaib Parker MD on 12/13/2023 12:07 PM PDT Station ID: [id number]
--- NOTE | 2023-12-13 12:11 | XRAY Report ---
PROCEDURE: Elbow 1-2V LT INDICATIONS: fall/pain TECHNIQUE: 2 views of the elbow were acquired. COMPARISON: None. FINDINGS: Bones: No fractures or dislocations. No suspicious bony lesions. Soft tissues: No effusion. No suspicious soft tissue calcifications or masses. IMPRESSION: No acute bony abnormality. Reviewed by: Shoaib Parker MD on 12/13/2023 12:10 PM PDT Approved by: Shoaib Parker MD on 12/13/2023 12:10 PM PDT Station ID: [id number]
--- NOTE | 2023-12-13 12:54 | ED Physician Documentation ---
PD HPI UPPER EXT INJURY - Stated complaint Stated Complaint: GLF - Chief complaint Chief Complaint: Trauma Ext - History obtained from History obtained from: Patient - Additonal information Additional information: Patient is an 83-year-old female with a history of A-fib on Eliquis presenting for evaluation after ground-level fall. Patient states she was walking her dog when her dog got excited after seeing another animal and pulled her down to the ground. She did not hit her head and did not have LOC. She reports falling onto the left arm primarily of the shoulder and elbow and this is where she only has pain. EMS was able to help her up and she was able to ambulate for them. She was given 100 mcg of fentanyl as well as 4 mg of Zofran. She denies pain elsewhere. 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 MANAGER ENVIRONMENTAL: None : None HEENT: None Psych: Depression Musculoskeletal: None Derm: None - Past Surgical History Past Surgical History: Yes General: Cholecystectomy /MANAGER ENVIRONMENTAL: Hysterectomy, Other HEENT: Tonsil/Adenoidectomy - Present Medications Home Medications: Ambulatory Orders Medication Instructions Recorded Confirmed Citalopram [CeleXA] 40 mg PO DAILY 11/30/13 12/13/23 Zolpidem [Ambien] 2.5 mg PO HS 11/30/13 12/13/23 Lidocaine Patch 5% [Lidoderm Patch] 1 patch TOP DAILY PRN #10 patch 02/10/22 12/13/23 HYDROcod/ACETAM 5/325 [Briggs 5/325] 1 tablet PO Q6H PRN #14 tablet 12/13/23 Lidocaine Patch 5% [Lidoderm Patch] 1 patch TOP DAILY PRN #10 patch 12/13/23 Ondansetron Odt [Zofran] 4 mg TL Q6H PRN #10 tablet 12/13/23 - Allergies Allergies/Adverse Reactions: Allergies Allergy/AdvReac Type Severity Reaction Status Date / Time Penicillins Allergy Anaphylaxis Verified 12/13/23 11:41 Sulfa (Sulfonamide Allergy blisters Verified 12/13/23 11:41 Antibiotics) morphine AdvReac Hallucinati Verified 12/13/23 11:41 ons - Social History Does the pt smoke?: No Smoking Status: Never smoker Does the pt drink ETOH?: Yes Does the pt have substance abuse?: No - Immunizations Immunizations are current?: Yes - POLST Patient has POLST: No POLST Status: Full Code PD ED PE NORMAL - General General: Alert and oriented X 3, No acute distress, Well developed/nourished - HEENT HEENT: Atraumatic, Moist mucous membranes, Pharynx benign - Neck Neck: Supple, no meningeal sign, No bony TTP - Cardiac Cardiac: RRR, Strong equal pulses - Respiratory Respiratory: No respiratory distress, Clear bilaterally - Abdomen Abdomen: Normal bowel sounds, Soft, Non tender, Non distended - Derm Derm: Warm and dry - Extremities Extremities: Other (Tenderness to proximal left upper extremity, no bony tenderness to the left elbow or more distally, strong radial pulses bilaterally, motor and sensation grossly intact) - Neuro Neuro: Alert and oriented X 3, No motor deficit, No sensory deficit, Normal speech Results - Vitals Vitals: Vital Signs - 24 hr 12/13/23 12/13/23 11:38 12:59 Temperature 35.8 C L 36.0 C L Heart Rate 58 L 58 L Respiratory 15 12 Rate Blood Pressure 174/71 H 146/62 H O2 Saturation 97 97 Oxygen O2 Source Room air PD Medical Decision Making - ED course Complexity details: reviewed results, d/w patient ED course: Pt with fall while walking dog onto L arm. Fall witnessed by friend with her. No head injury and no signs of head trauma. Pt given fentanyl from EMS and declines pain meds here. XR L shoulder and L elbow reviewed. Pt with proximal humerus fracture. Pt placed into sling. No injuries noted elsewhere during exam. Discussed treatment plan, need for follow up with pt and daughter at bedside. She is normally ambulatory without any assist devices and ambulates here. Pt aware of return precautions. Departure - Departure Disposition: 01 Home, Self Care Clinical Impression: Closed fracture of left proximal humerus Condition: Stable Instructions: ED Fx Upper Ext Prescriptions: Lidocaine Patch 5% [Lidoderm Patch] 1 patch TOP DAILY PRN #10 patch PRN Reason: pain HYDROcod/ACETAM 5/325 [Briggs 5/325] 1 tablet PO Q6H PRN #14 tablet PRN Reason: Pain Ondansetron Odt [Zofran] 4 mg TL Q6H PRN #10 tablet PRN Reason: Nausea / Vomiting Comments: You have a fracture of your humerus which is a long bone in the upper arm on the left side. Please continue to wear the sling and have close follow-up with orthopedic surgery. Have sent a prescription for pain and nausea medication as well as lidocaine patches to [facility] in [place]. Return to the emergency department with any worsening symptoms. I am prescribing a short course of narcotic pain medication for you. These are potentially dangerous and addictive medications that should be used carefully. These medications may constipate you. Take an [id number] stool softener (docusate) twice daily with plenty of water while taking these medications. If you go 24 hours without a bowel movement, take [id number] miralax, per package instructions. Do not drink or drive while taking these medications. If you received narcotic or sedating medications while in the emergency department, do not drive for 24 hours. Store this medication in a safe, secure place and out of reach of children. It is a violation of federal law to give or sell this medication to another person or to use in a manner other than prescribed. The ED will not refill narcotic prescriptions, including prescriptions lost or stolen. To dispose of unwanted medications: 1. [facility] at [address] in [place] has a medication drop box. They accept prescription medications (in pill form) Saturday through Saturday 9:00 a.m. to 5:00 p.m. 2. The [facility] [employer] accepts prescription medications (in pill form only) for disposal year round. Call for more information. 3. Contact the [facility] for the next [facility] sponsored prescription drug collection event. , [phone], or [phone]; Note that many narcotic pain relievers also contain Tylenol/acetaminophen. Please ensure that your total dose of acetaminophen from all sources does not exceed 3 g (3000 mg) per day. Forms: PCP List Discharge Date/Time: 12/13/23 13:13
[2023-12-13] MEDS: HYDROcod/ACETAM 5/325 MG TABLET PO STA (12:55)
[2023-12-13 13:03] VITALS: BP 146/62
--- NOTE | 2023-12-14 11:52 | ED Physician Documentation ---
ED Addendum - Addendum Addendum: 12/14/23 11:51 Took call from patient friend. Pain is incompletely controlled taking 1 hydrocodone/acetaminophen every 6 hours. Advised she could increase it to 1 every 4 hours, or alternatively take the hydrocodone/acetaminophen every 6 hours with a single Tylenol.
== END 2023-12-13 13:13 | disposition home or self-care (01) ==
LOC: EDUNIT# → ED 11:30 → SUPCPDRO 11:30 → ED 13:13
DX: S42.292A Other displaced fracture of upper end of left humerus, initial encounter for closed fracture (principal); W01.0XXA Fall on same level from slipping, tripping and stumbling without subsequent striking against object, initial encounter; Y93.K1 Activity, walking an animal; I25.10 Atherosclerotic heart disease of native coronary artery without angina pectoris; Z86.73 Personal history of transient ischemic attack (TIA), and cerebral infarction without residual deficits; I48.91 Unspecified atrial fibrillation; Z79.01 Long term (current) use of anticoagulants
CPT/HCPCS: 73030; 73070; 96374; 99284; A9270